=== PATIENT | male | born 1950 ===

== ENCOUNTER → 2020-02-19 11:05 | Outpatient (REF) | payer OTHER, SELFPAY | LOC: ANHLAB 11:05 | PROVIDERS: Visit Provider Nurse Practitioner | DX: C44.212 Basal cell carcinoma of skin of right ear and external auricular canal (principal) | CPT/HCPCS: 88305 ==

== ENCOUNTER → 2020-04-07 09:57 | Outpatient (REF) | payer OTHER, SELFPAY | LOC: ANHLAB 09:57 | PROVIDERS: Visit Provider Nurse Practitioner | DX: C44.212 Basal cell carcinoma of skin of right ear and external auricular canal (principal) | CPT/HCPCS: 88305; 88331 ==

== ENCOUNTER → 2022-02-08 10:25 | Outpatient (REF) | payer OTHER, SELFPAY | LOC: ANHLAB 10:25 | PROVIDERS: Visit Provider Nurse Practitioner | DX: C44.622 Squamous cell carcinoma of skin of right upper limb, including shoulder (principal) | CPT/HCPCS: 88305; 88331 ==